=== PATIENT | female | born 1985 | race Caucasian/White ===

== ENCOUNTER 2019-05-03 13:37 | Inpatient (IN) | payer MEDICARE, MEDICAID ==
[~2019-05-03] VITALS: Ht 144.8 cm; Wt 55.8 kg
[2019-05-03] MEDS ORDERED: LORAZEPAM INJ 2 MG/ML VIAL ONE (13:50)
[2019-05-03] MEDS ORDERED: OLANZAPINE 10 MG VIAL IM ONE ×2 (13:50→14:00)
--- NOTE | 2019-05-03 13:52 | NUR ---
PT TADEO FROM AN [facility] FOR BIZZARE BEHAVIOUR. PER REPORT PT WAS YELLING, TAKING OFF HER TOP CLOTHES. PLACED ON MONITOR. PLACED ON 2 PT RESTRAINT. SITTER AT BEDSIDE AWAITING MD BREWSTER.
--- NOTE | 2019-05-03 13:54 | NUR ---
MEDICATED ORDERED. WILL CONT TO MONITOR.
--- NOTE | 2019-05-03 13:57 | NUR ---
SERVICE DELIVERY ANALYST AT BEDSIDE FOR BLOOD DRAW.
[2019-05-03] MEDS ORDERED: LORAZEPAM INJ 2 MG/ML VIAL IM ONE (14:00)
[2019-05-03 14:09] LABS: BASOPHILS # (AUTO) 0.1 /CMM (0.0-0.2); BASOPHILS % (AUTO) 0.8 % (0.0-2.0); EOSINOPHILS % (AUTO) 0.9 % (0.0-6.0); HEMATOCRIT 35 % (33-45); HEMOGLOBIN 12.1 g/dL (11.5-14.8); LYMPHOCYTES # (AUTO) 1.9 /CMM (0.8-4.8); LYMPHOCYTES % (AUTO) 19.4 % (20.0-44.0); MEAN CORPUSCULAR HGB CONC 35 g/dl (31.0-36.0); MEAN CORPUSCULAR VOLUME 74 fL (82-100); MONOCYTES # (AUTO) 0.6 /CMM (0.1-1.30); MONOCYTES % (AUTO) 5.6 % (2.0-12.0); NEUTROPHILS # (AUTO) 7.2 /CMM (1.8-8.9); NEUTROPHILS % (AUTO) 73.3 % (43.0-81.0); PLATELET COUNT (AUTO) 261 /CMM (150-450); RED BLOOD CELL COUNT(AUTO) 4.76 MIL/uL (4.0-5.2); WHITE BLOOD COUNT (AUTO) 9.9 K/uL (4.3-11.0)
[2019-05-03 14:15] LABS: CALCIUM, SERUM 9.4 mg/dL (8.5-10.1); CARBON DIOXIDE 25 mmol/L (21-32); CHLORIDE 101 mmol/L (98-107); CREATININE 0.8 mg/dL (0.6-1.3); GLUCOSE 170 mg/dL (74-106); SODIUM SERUM 138 mmol/L (136-145); UREA NITROGEN, BLOOD 11 mg/dL (7-18)
[2019-05-03 14:21] LABS: ALANINE AMINOTRANSFERASE 45 U/L (12-78); ALBUMIN 4.7 g/dL (3.4-5.0); ALKALINE PHOSPHATASE 150 U/L (46-116); ASPARTATE AMINOTRANSFERASE 25 U/L (15-37); BILIRUBIN,DIRECT 0.1 mg/dL (0.0-0.2); BILIRUBIN,TOTAL 0.6 mg/dL (0.2-1.0); TOTAL PROTEIN, SERUM 8.3 g/dL (6.4-8.2)
[2019-05-03 14:22] LABS: ACETAMINOPHEN 0 ug/ml (10-30); ALCOHOL, BLOOD < 3 mg/dL (0-0); SALICYLATE 1.8 mg/dL (2.8-20.0)
[2019-05-03] MEDS ORDERED: IV NS 0.9% 1,000 ML IV ONE (14:30)
[2019-05-03] MEDS ORDERED: SUCR1ORA PO (14:48)
[2019-05-03] MEDS ORDERED: MIRT15TA7 PO (14:48)
[2019-05-03] MEDS ORDERED: BUSP15TA3 PO (14:48)
[2019-05-03] MEDS ORDERED: VENL75CA62 PO (14:48)
[2019-05-03] MEDS ORDERED: BUPR8TAB4 SL (14:48)
[2019-05-03] MEDS ORDERED: GABA600T12 PO (14:48)
[2019-05-03] MEDS ORDERED: FAMO40TA7 PO (14:48)
[2019-05-03] MEDS ORDERED: DOCU-141 PO (14:48)
[2019-05-03] MEDS ORDERED: ASPI-605 PO (14:48)
[2019-05-03] MEDS ORDERED: BUSP10TA3 PO (14:48)
[2019-05-03] MEDS ORDERED: FLUT9.9S16 NS (14:48)
[2019-05-03] MEDS ORDERED: AMYL1CAP56 PO (14:48)
[2019-05-03] MEDS ORDERED: PANT40TA4 PO (14:48)
[2019-05-03] MEDS ORDERED: ACET-73 PO (14:48)
--- NOTE | 2019-05-03 15:12 | NUR ---
URINE SAMPLE SENT TO LAB
[2019-05-03 15:16] LABS: APPEARANCE,URINE Clear (CLEAR); BILIRUBIN,URINE Negative (NEGATIVE); BLOOD, URINE Negative Ery/uL (NEGATIVE); COLOR,URINE Yellow (YELLOW); KETONES,URINE Negative (NEGATIVE); LEUKOCYTE ESTERASE ,URINE Negative (NEGATIVE); NITRITE, URINE Negative (NEGATIVE); PROTEIN,URINE Negative (NEGATIVE); UGLUCOSE Negative (NEGATIVE); UROBILINOGEN,URINE 0.2 EU/dL (0.2)
--- NOTE | 2019-05-03 16:16 | NUR ---
PT SLEEPING IN BEDSIDE. EASILY AROUSABLE. ON MONITOR. VSS.
--- NOTE | 2019-05-03 18:03 | NUR ---
PT SLEEPING, VSS. EASILY AROUSABLE. WILL CONTINUE TO MONITOR.
--- NOTE | 2019-05-03 21:35 | NUR ---
pt is staying at [facility] in [place]. called spoke to celina, they will send someone to pick her up
--- NOTE | 2019-05-03 22:00 | NUR ---
SPOKE WITH DEE FROM [facility]. PER DEE, PT NOT ACCEPTED BACK TO FACILITY AND CANNOT COME TO [facility] UNTIL 0900 TOMORROW MORNING. PER NURSING SUP, ER OBS AND LAW WRITER UNTIL AM
--- NOTE | 2019-05-04 01:30 | NUR ---
MS/RN NOTES REQUESTED FOR MEDICATION FOR SLEEP.
--- NOTE | 2019-05-04 03:32 | NUR ---
PT RESTING COMFORTABLY IN BED. EASILY AROUSABLE. VITAL SIGNS STABLE. NO ACUTE DISTRESS NOTED AT THIS TIME.
--- NOTE | 2019-05-04 06:33 | NUR ---
PT RESTING COMFORTABLY IN BED. EASILY AROUSABLE. VITAL SIGNS STABLE. NO ACUTE DISTRESS NOTED AT THIS TIME
--- NOTE | 2019-05-04 08:23 | NUR ---
GERARDO PEPE AT BEDSIDE FOR EVAL.
--- NOTE | 2019-05-04 08:33 | NUR ---
Social service consult requested by Dr. Pate for drug rehab placement. Pt. is a 33 year old female who was brought to [facility] ED via ambulance for bizarre and psychotic behaviors. Pt. had been in the ED since yesterday afternoon. AFSHIN was informed by IRAJ Drake that pt's rehab " [facility]" refused to take pt. back. SW met with pt. bedside. Pt. is alert and oriented x 4. Pt. is pleasant and cooperative with SW. Pt's mood is congruent. Pt. states she is originally from [facility]. Pt. is on probation and her environmental technical officer is Dixie Ceja . Pt. is on probation for being under the influence of drugs. Pt. has been at the [facility] for the past 2 months. Pt's drug of choice is opioids. Pt. last used heroin in February 2019. Pt. denies alcohol, cigarette and marijuana use. Pt. has a psychiatric diagnosis of Depression and Anxiety. Pt. takes medications but did not know the names of her medication. Pt. also has had open heart surgery in the past and has chronic pancreatitis. Pt. last psychiatric admission was at [facility] in October 2018. Pt. currently denies suicidal and homicidal ideations and visual/auditory hallucinations at this time. Pt's mother Daiana Tabares is her emergency contact or . AFSHIN contacted pt's rehab [facility] and spoke with Amanda and Kelle who both informed SW that they cannot accept pt. because she needs higher level of care. They informed SW that pt. will have to make an appointment to get her belongings.
--- NOTE | 2019-05-04 08:55 | NUR ---
AFSHIN called Filiberto Douglas at [facility] to inquire if they have any female beds available for inpatient. Filiberto requested for AFSHIN to fax clinicals.
--- NOTE | 2019-05-04 09:00 | NUR ---
PATIENT AWAKE ALERT SNACKS GIVEN 98 % CONSUMED NO NAUSEA AND VOMIT ,NO AGITATION ,NO HALLUCINATION CONTINUE TO MONITOR
--- NOTE | 2019-05-04 09:45 | NUR ---
AFSHIN contacted pt's light armored reconnaissance officer Dixie Ceja and informed her that pt. is here at [facility] since yesterday and [facility] is not accepting pt. back. AFSHIN informed Dixie that she spoke with Angela at [facility] who had informed SW that they did notify and speak with the light armored reconnaissance officer. nuclear officer Dixie informed SW that they did not speak with her at all and this is the first time she is hearing about this. She informed SW she is going to call them now.
--- NOTE | 2019-05-04 10:35 | NUR ---
AFSHIN faxed clinicals and received a call back from Filib[facility] stating they will accept the pt. tomorrow since there are no female beds available today. AFSHIN consulted with ED physician who will admit pt.today and pt. to be discharged to [facility] tomorrow.
--- NOTE | 2019-05-04 11:17 | NUR ---
PATIENT AWAKE ALERT DENIES PAIN OR SOB NON DISTRESS DENIES SI NO AGITATION ,NO HALLUCINATION NOTED NO FAMILY @ BEDSIDE
--- NOTE | 2019-05-04 11:32 | NUR ---
PATIENT AWAKE ALERT NON DISTRESS VITALS TAKEN AND FILED SHE DENIES PAIN ,SI,HALLUCINATION NO AGITATION NOTED PATIENT ABLE TO MAKE HER NEEDS KNOWN CONTINUE TO MONITOR
--- NOTE | 2019-05-04 11:40 | NUR ---
CALLED FOR MED-SURGE BED, TURNED IN MOVE SHEET
--- NOTE | 2019-05-04 11:43 | NUR ---
PAGED DR SCHERER
[2019-05-04] MEDS ORDERED: MAGNESIUM HYDROXIDE 30 ML UDC PO PRN (12:30)
[2019-05-04] MEDS ORDERED: ONDANSETRON HCL/PF 4 MG/2 ML VIAL IVP PRN (12:30)
[2019-05-04] MEDS ORDERED: Z GUARD REMEDY 2 OZ OINT TP PRN (12:30)
[2019-05-04] MEDS ORDERED: ACETAMINOPHEN 325 MG TABLET PO PRN (12:30)
[2019-05-04] MEDS ORDERED: MAG HYDROX/AL HYDROX/SIMETH 30 ML UDC PO PRN (12:30)
[2019-05-04 12:45] LABS: BASOPHILS % (AUTO) 1.5 % (0.0-2.0); EOSINOPHILS % (AUTO) 2.5 % (0.0-6.0); HEMATOCRIT 34 % (33-45); HEMOGLOBIN 11.8 g/dL (11.5-14.8); LYMPHOCYTES % (AUTO) 22.9 % (20.0-44.0); MEAN CORPUSCULAR HGB CONC 35 g/dl (31.0-36.0); MEAN CORPUSCULAR VOLUME 75 fL (82-100); MONOCYTES % (AUTO) 6.6 % (2.0-12.0); NEUTROPHILS % (AUTO) 66.5 % (43.0-81.0); PLATELET COUNT (AUTO) 208 /CMM (150-450); RED BLOOD CELL COUNT(AUTO) 4.55 MIL/uL (4.0-5.2); WHITE BLOOD COUNT (AUTO) 6.6 K/uL (4.3-11.0)
[2019-05-04 12:46] LABS: BASOPHILS # (AUTO) 0.1 /CMM (0.0-0.2); LYMPHOCYTES # (AUTO) 1.5 /CMM (0.8-4.8); MONOCYTES # (AUTO) 0.4 /CMM (0.1-1.30); NEUTROPHILS # (AUTO) 4.4 /CMM (1.8-8.9)
[2019-05-04 13:05] LABS: CARBON DIOXIDE 30 mmol/L (21-32); CHLORIDE 105 mmol/L (98-107); CREATININE 0.6 mg/dL (0.6-1.3); GLUCOSE 127 mg/dL (74-106); POTASSIUM 3.8 mmol/L (3.5-5.1); SODIUM SERUM 138 mmol/L (136-145); UREA NITROGEN, BLOOD 13 mg/dL (7-18)
[2019-05-04 13:18] LABS: B-TYPE NATRIURETIC PEPTIDE 118 PG/ML (0-125)
--- NOTE | 2019-05-04 13:45 | NUR ---
ANTHROPOLOGY INSTRUCTOR NOTES PT ARRIVED ONTO THE UNIT AT 1345. ALL PATIENT BELONGINGS ACCOUNTED FOR AND DOCUMENTED. PT HAS LEFT HAND #20 IV INTACT AND PATENT. PT WILL TRANSFER TO [facility] TOMORROW. PT ORIENTED TO THE USE OF THE CALL LIGHT. WILL CARRY OUT ALL ORDERS. SAFETY PRECAUTIONS IN PLACE, BED IN LOWEST LOCKED POSITION, X2 SIDE RAILS UP AND CALL LIGHT WITHIN REACH. WILL CONTINUE TO MONITOR.
--- NOTE | 2019-05-04 13:46 | NUR ---
PATIENT TO ROOM 308 REPORT GIVEN TO SEAMUS MADE AWARE LINESPERSON SEEN PATIENT
[2019-05-04] MEDS: IV 1/2NS 1000 ML 1,000 ML IV PRN (14:27)
[2019-05-04 15:25] VITALS: BP 98/52
--- NOTE | 2019-05-04 17:40 | NUR ---
RN NOTES PER PHARMACY SUBOXONE IS NOT AVAILABLE, PATIENT WILL BE DISCHARGED TOMORROW TO [facility]. WILL INFORM PATIENT.
[2019-05-04 18:06] VITALS: BP 98/52
--- NOTE | 2019-05-04 18:59 | NUR ---
RN CLOSING NOTES PT RESTING IN BED. PT HAS LEFT HAND #20 IV INTACT AND RUNNING 1/2NS @75ML/HR. PT WILL TRANSFER TO [facility] TOMORROW. DR MARIE MADE AWARE OF PATIENTS MEDRECON. SAFETY PRECAUTIONS IN PLACE, BED IN LOWEST LOCKED POSITION, X2 SIDE RAILS UP AND CALL LIGHT WITHIN REACH. WILL ENDORSE TO ELEMENT WINDING MACHINE TENDER NURSE FOR CONTINUITY OF CARE.
--- NOTE | 2019-05-04 19:47 | NUR ---
MS/RN OPENING NOTES RECEIVED PATIENT ALERT, ORIENTED X3, CAN VERBALIZE NEEDS, ABLE TO AMBULATE WITH SUPERVISION, VERBALIZE THE NEED TO TAKE SLEEP MEDICATION EARLIER BY 830PM WILL MONITOR FOR SLEEP AND REST. PLAN OF CARE WAS PROVIDED THAT PATIENT WILL BE BROUGHT AND BE DISCHARGE TO [facility] FOR FURTHER TREATMENT, WILL MONITOR ANY CHANGES IN BEHAVIOR PATIENT HAS HISTORY OF MENTAL BEHAVIOR. WILL MONITOR.BED LOCKED CALL LIGHTS WITHIN REACH.
[2019-05-04 20:00] VITALS: BP 96/58
[2019-05-04] MEDS ORDERED: FAMOTIDINE 40 MG TABLET PO SCH (20:00)
[2019-05-04] MEDS: SUCRALFATE 1 G/10 ML UDC PO SCH (20:53)
[2019-05-04] MEDS: VENLAFAXINE XR 75 MG CAP.SR.24H PO SCH (20:53)
[2019-05-04] MEDS: PANTOPRAZOLE 40 MG TABLET.DR PO SCH (20:53)
[2019-05-04] MEDS: ASPIRIN EC 81 MG TABLET.DR PO SCH (20:53)
--- NOTE | 2019-05-04 21:25 | NUR ---
RT NOTE LATE ENTRY @2044 RT ASKED PT, IF PT WOULD LIKE A FEMALE WITNESS FOR EKG. PT STATED NO SHE DOES NOT NEED A FEMALE WITNESS FOR EKG TO BE PERFORMED. EKG PERFORMED.
[2019-05-04] MEDS: MIRTAZAPINE 15 MG TABLET PO SCH (21:31)
[2019-05-04] MEDS: ZOLPIDEM TARTRATE 5 MG TABLET PO PRN (21:31)
--- NOTE | 2019-05-05 06:30 | NUR ---
MS/RN NOTES PATIENT IN BED. RESTING COMFORTABLY IN BED. BED LOCKED CALL LIGHTS WITHIN REACH. WILL MONITOR. ENDORSED TO AM RN FOR JULIET.
[2019-05-05 06:31] LABS: BASOPHILS # (AUTO) 0.1 /CMM (0.0-0.2); BASOPHILS % (AUTO) 1.1 % (0.0-2.0); EOSINOPHILS % (AUTO) 5.6 % (0.0-6.0); HEMATOCRIT 32 % (33-45); LYMPHOCYTES # (AUTO) 2.1 /CMM (0.8-4.8); LYMPHOCYTES % (AUTO) 37.3 % (20.0-44.0); MEAN CORPUSCULAR HGB CONC 34 g/dl (31.0-36.0); MEAN CORPUSCULAR VOLUME 75 fL (82-100); MONOCYTES # (AUTO) 0.4 /CMM (0.1-1.30); MONOCYTES % (AUTO) 7.9 % (2.0-12.0); NEUTROPHILS # (AUTO) 2.7 /CMM (1.8-8.9); NEUTROPHILS % (AUTO) 48.1 % (43.0-81.0); PLATELET COUNT (AUTO) 204 /CMM (150-450); RED BLOOD CELL COUNT(AUTO) 4.31 MIL/uL (4.0-5.2); WHITE BLOOD COUNT (AUTO) 5.7 K/uL (4.3-11.0)
[2019-05-05] MEDS: IV 1/2NS 1000 ML 1,000 ML IV PRN (06:38)
[2019-05-05 06:42] LABS: ALBUMIN 3.4 g/dL (3.4-5.0); BILIRUBIN,TOTAL 0.4 mg/dL (0.2-1.0); CALCIUM, SERUM 8.7 mg/dL (8.5-10.1); CREATININE 0.8 mg/dL (0.6-1.3); MAGNESIUM 1.6 mg/dL (1.8-2.4); PHOSPHORUS 4.1 mg/dL (2.5-4.9); TOTAL PROTEIN, SERUM 6.6 g/dL (6.4-8.2)
[2019-05-05 08:00] VITALS: BP 107/66
--- NOTE | 2019-05-05 08:00 | NUR ---
PATIENT RECEIVED IN BED ALERT AND ORIENTED X4 , VERY PLEASANT VITAL STABLE DENIES ANY ANXIETY , OR PAIN , WILL CONTINUE CARE SR X2 UP CALL LIGHT WITHIN REACH IV SITE PATENT 1/2NS INFUSING AT 75CC/HR WILL CONTINUE WITH CARE
[2019-05-05] MEDS: LIPASE/PROTEASE/AMYLASE 1 EACH CAPSULE.DR PO SCH ×3 (08:17→18:14)
[2019-05-05] MEDS: PANTOPRAZOLE 40 MG TABLET.DR PO SCH (08:18)
[2019-05-05] MEDS: busPIRone 5 MG TABLET PO SCH ×3 (08:18→16:32)
[2019-05-05] MEDS: DOCUSATE SODIUM 100 MG CAPSULE PO SCH (08:19)
[2019-05-05] MEDS: SUCRALFATE 1 G/10 ML UDC PO SCH ×4 (08:19→21:10)
[2019-05-05] MEDS: ASPIRIN EC 81 MG TABLET.DR PO SCH (08:19)
[2019-05-05] MEDS: GABAPENTIN 300 MG CAPSULE PO SCH ×3 (08:20→16:33)
[2019-05-05] MEDS: VENLAFAXINE XR 75 MG CAP.SR.24H PO SCH (08:20)
[2019-05-05] MEDS: FAMOTIDINE (20 MG) 20 MG TABLET PO SCH (08:21)
[2019-05-05] MEDS: FLUTICASONE PROPIONATE 16 GM BOTTLE NS SCH ×2 (08:24→17:48)
[2019-05-05] MEDS ORDERED: BUPRENORPHINE HCL 2 MG SL SCH (09:00)
[2019-05-05] MEDS: Magnesium 1GM/D5W 100ML PREMIX 100 ML IV SCH ×2 (12:01→13:05)
--- NOTE | 2019-05-05 15:40 | NUR ---
AFSHIN contacted Isabell at [facility] to inquire if they can drop off pt' s medications since [facility] will not accept pt. without her medications. Isabell informed AFSHIN they will be sending someone shortly to [facility] to get the medications to the hospital.
[2019-05-05 16:00] VITALS: BP 105/59
--- NOTE | 2019-05-05 16:33 | NUR ---
Discharge Plan Pt. was turned down by [facility] at the end of the day per Gill GIRON who was working on this case. Patient is very agreeable to going to [facility] and has been there before.This clinician spoke to Polo at [facility] ([phone]) at 1620 and he agreed to have patient come in voluntarily. Pt. is alert and oriented x4 and calm and cooperative. Her recent program dropped off all her psychotropic medication. Leeanna and this fiction writer agreed that it would be prudent to give meds. to pharmacy for excelsior picker at a later date in view of patient's history of substance abuse and mental health issues. Pt. will go via cab to [facility], [address], [facility]. Leeanna palafox RN and Shellie, splicing supervisor were notified of the this. Patient will in essence be presenting on her own for voluntary admission rather then be transferred. Patient is very agreeable to this plan. No 5150 criteria per all reports and no acute psychiatric symptoms. Patient will benefit form stabilization on her meds.
--- NOTE | 2019-05-05 19:46 | NUR ---
patient on floor awaiting transport to home , pt is dc refused , TAXI CAB TO [place] PLANED
[2019-05-05 20:00] VITALS: BP 117/72
--- NOTE | 2019-05-05 20:00 | NUR ---
RN NOTES RECEIVED PT. AWAKE ON BED, PER. PATIENT SHE'S NOT GOING TO [facility], SHE STATED THAT HER PARENT IS GOING TO PICK HER UP, DENIES PAIN, NO SOB, CALL LIGHT WITHIN REACH, [id number], CONTINUE TO MONITOR
[2019-05-05 20:37] VITALS: BP 117/72
[2019-05-05] MEDS: MIRTAZAPINE 15 MG TABLET PO SCH (21:10)
--- NOTE | 2019-05-05 23:00 | NUR ---
RN NOTES CALLED PT'S MOTHER AND SPOKE TO PATSY- PER PT'S MON THEY WERE SUPPOSED TO PICK-UP THE PT BUT THERE CAR BROKE TEDDY'S WHY THEY CANNOT SUPERVISOR FURNACE ROOM THE PT TONIGHT AND WAS VERY APOLOGETIC
--- NOTE | 2019-05-06 00:10 | NUR ---
RN NOTES GOT AN ORDER FROM DR. MARTINEZ THAT PT. CAN STAY OVERNIGHT, ORDER NOTED AND CARRIED OUT
[2019-05-06] MEDS: ZOLPIDEM TARTRATE 5 MG TABLET PO PRN (00:38)
--- NOTE | 2019-05-06 00:42 | NUR ---
RN NOTES PT. TOOK ONLY HALF OF AMBIEN 5MG PO
--- NOTE | 2019-05-06 01:00 | NUR ---
RN NOTES PER PT'S HER MOTHER ADVISED HER TO GO [facility] SO SHE WILL BE TREATED THAT'S WHY THE PT'S AGREED SHE WILL BE GOING TO [facility] THIS MORNING
--- NOTE | 2019-05-06 06:27 | NUR ---
RN NOTES SLEEPING BUT AROUSABLE, MORNING CARE RENDERED, CALL LIGHT WITHIN REACH, [id number], PT. NEEDS ATTENDED
[2019-05-06 08:00] VITALS: BP 106/58
[2019-05-06] MEDS: busPIRone 5 MG TABLET PO SCH (08:51)
[2019-05-06] MEDS: LIPASE/PROTEASE/AMYLASE 1 EACH CAPSULE.DR PO SCH (08:52)
[2019-05-06] MEDS: DOCUSATE SODIUM 100 MG CAPSULE PO SCH (08:53)
[2019-05-06] MEDS: SUCRALFATE 1 G/10 ML UDC PO SCH (08:54)
[2019-05-06] MEDS: GABAPENTIN 300 MG CAPSULE PO SCH (08:55)
[2019-05-06] MEDS: PANTOPRAZOLE 40 MG TABLET.DR PO SCH (08:55)
[2019-05-06] MEDS: VENLAFAXINE XR 75 MG CAP.SR.24H PO SCH (08:55)
[2019-05-06] MEDS: FAMOTIDINE (20 MG) 20 MG TABLET PO SCH (08:55)
[2019-05-06] MEDS: FLUTICASONE PROPIONATE 16 GM BOTTLE NS SCH (09:09)
[2019-05-06] MEDS: ASPIRIN EC 81 MG TABLET.DR PO SCH (09:10)
--- NOTE | 2019-05-06 10:08 | NUR ---
Discharge Planning Update Patient refused to go to [facility] as planned last night. Her mother's car " broke down" and she did not pick patient up. Today patient is agreeable and will go via cab to [facility], [address] [facility] [address]. This clinician spoke with Yoli in intake at 1014 ([phone]) and she is agreeing to accept the patient for an assessment for voluntary admission. Pt. is alert and oriented x 4.
--- NOTE | 2019-05-06 11:00 | NUR ---
Patient Alert and oriented x4 , patient is going via cab to [facility], [address] [facility] [address] for voluntary admission. D/C papers sighed, education provided; patient verbalized understanding. Patient sighed valuable form ; all belongings with the patient including own medication. Patient has no IV assess, ID wrist band removed. Patient safely transferred to [facility] accompanied by Dionna Kumar
== END 2019-05-06 11:00 | disposition home or self-care (01) | DRG 917 ==
LOC: ER 13:45 → MED 05-04 11:56
PROVIDERS: ADMIT Internal Medicine; ATTEND Internal Medicine
DX: T40.2X1A Poisoning by other opioids, accidental (unintentional), initial encounter (principal); G92 Toxic encephalopathy; F11.20 Opioid dependence, uncomplicated; K21.9 Gastro-esophageal reflux disease without esophagitis; F32.9 Major depressive disorder, single episode, unspecified; Z95.2 Presence of prosthetic heart valve; Y92.89 Other specified places as the place of occurrence of the external cause
CPT/HCPCS: 36415; 71045-TC; 80048-TC; 80053-TC; 80061-TC; 80076-TC; 80305; 81000-TC; 83735-TC; 83880; 84100-TC; 84484-TC; 84703-TC; 85025-TC; 85730-TC; 87081-TC; G0378; G0480; J2060; J3475; J3490; J7030